=== PATIENT | female | born 1970 | race Caucasian/White ===

== ENCOUNTER 2023-12-12 16:32 | Emergency (ER) | payer BC, SELFPAY ==
[2023-12-12 16:32] VITALS: BP 108/51; PULSE 71; RESP 18; TEMP 36.8; O2SAT 99
--- NOTE | 2023-12-12 17:37 | ED.DENTAL ---
HPI - Dental/Oral General Chief complaint: Dental/Oral Stated complaint: dental abscess Time Seen by Provider: 12/12/23 17:37 Focused HPI: This is a 53 year old female that presents to the ER for dental pain. Ongoing over the last several days. Reports her dentist called her in an antibiotic. Was originally on Keflex. Then switched to Ampicillin with little relief. Her pain has continued to worsen. Not relieved with Tylenol or anti-inflammatories. Denies fevers. GENERAL: Well-appearing, well-nourished, and in no acute distress. HEAD: Normocephalic, atraumatic. CHEST: Clear to auscultation. ?No respiratory distress. HEART: Regular rate and rhythm.? NEURO: ?Alert and oriented x3. Patient screened in triage and initial orders placed.? ?Additional care and disposition to be based upon?diagnostic testing and treatment. Related Data Home Medications Medication Instructions Recorded Confirmed cholecalciferol (vitamin D3) 125 125 mcg PO DAILY 08/31/21 12/13/23 mcg (5,000 unit) capsule (Dialyvite Vitamin D) mv-min-vit C 1,000 mg-elderberry ea PO 08/31/21 12/13/23 50 mg-herb 35.5mg effervescent tablet (Airborne Elderberry) omega-3 fatty acids 1,000 mg 1,000 mg PO DAILY 08/31/21 12/13/23 capsule ([place]-3) ampicillin 500 mg capsule PO QID 12/13/23 12/13/23 cetirizine 10 mg tablet (Zyrtec) 10 mg PO DAILY 12/13/23 12/13/23 Allergies Allergy/AdvReac Type Severity Reaction Status Date / Time No Known Allergies Allergy Verified 12/13/23 08:07 [facility] Past Medical History Medical History Allergies BMI 26.0-26.9,adult Numbness and tingling of right arm Pain of right thumb Trigger finger of left thumb Surgical History Surgical History H/O laparoscopy H/O tubal ligation Hx of tonsillectomy Family History Family History Father Hypertension Family history of diabetes mellitus in first degree relative Grandparent Hypertension Cerebrovascular accident Family history of coronary artery disease Diabetes mellitus Other Family history of lung cancer Family history of malignant neoplasm of male breast Social History Social History Smoking status: Current every day smoker Tobacco type: cigarettes Alcohol intake: current Lack of Transportation: No Lack of Food: Never True Current Housing: I Have Housing Concerned About Future Housing: No Difficulty Paying Gas/Electric Bills: No Difficulty Paying for Meds: No Currently Unemployed: No Education: High School Diploma/GED Difficulty w/ Childcare or Family Care: No Living arrangements: with family Occupation/Education: occupation Additional occupation/education comments: [employer]- [employer] Vital Signs Vital signs: Vital Signs Temperature 98.3 F 12/12/23 16:32 Pulse Rate 71 12/12/23 16:32 Respiratory Rate 18 12/12/23 16:32 Blood Pressure 108/51 L 12/12/23 16:32 Pulse Oximetry 99 12/12/23 16:32 Oxygen Delivery Room Air 12/12/23 16:32 Temperature 98.3 F 12/12/23 16:32 Pulse Rate 71 12/12/23 16:32 Respiratory Rate 18 12/12/23 16:32 Blood Pressure 108/51 L 12/12/23 16:32 Pulse Oximetry 99 12/12/23 16:32 Oxygen Delivery Room Air 12/12/23 16:32 MDM - Dental/Oral MDM Narrative Medical decision making narrative: Patient left after medical screening exam and before any further evaluation or management Differential Diagnosis Differential diagnosis: Likely toothache and dental abscess Discharge Plan Discharge Clinical Impression: Toothache Patient Disposition: Elopement After Seen by Prov Condition: Stable Prescriptions: No Action cholecalciferol (vitamin D3) [Dialyvite Vitamin D] 125 mcg (5,000 unit) capsule 125 mcg PO DAILY Airborne Elderberry 1,000 mg-50 mg-35.5 mg tablet, effervescent PO omega-3 fatty acids [[place]-3] 1,000 mg capsule 1,000 mg PO DAILY cetirizine [Zyrtec] 10 mg tablet 10 mg PO DAILY ampicillin 500 mg capsule PO QID tramadol 50 mg tablet 50 mg PO BID PRN (Reason: pain) Qty: 20 0RF Follow-up/Referrals: Milan Pittman MD [Primary Care Provider] - Stand Alone Forms: Work/School Release IP
--- NOTE | 2023-12-13 00:39 | PC.NURSE ---
no answer for vital sighs
== END 2023-12-13 00:39 | disposition left against medical advice (07) ==
LOC: ANHED 12-13 01:01
PROVIDERS: Emergency Provider Physician Assistant; PCP Family Medicine
DX: K08.89 Other specified disorders of teeth and supporting structures (principal); F17.210 Nicotine dependence, cigarettes, uncomplicated
CPT/HCPCS: 99281